=== PATIENT | male | born 1960 | race Caucasian/White ===

== ENCOUNTER 2017-12-07 07:08 | Inpatient (IN) | payer BC, OTHER ==
[~2017-12-07] VITALS: Ht 172.7 cm; Wt 94.2 kg
--- NOTE | ~2017-12-07 | EKG ---
[address] [place] [address] ELECTROCARDIOGRAM REPORT Name: CLARK KERR Room #: 202-P DIS IN M.R.#: [id number] Admission: 12/07/17 Attend Phys: Raheem Akhtar MD Discharge: 12/08/17 Date of : 56 Report #: [id number] THIS REPORT FOR: //name// [facility] Test Date: 2017-12-08 Test Time: 08:18:10 Pat Name: CLARK KERR Department: Room: 202 P Gender: M Accessioner: jlangel luis : 1960 Requested By: Fabi Guillermo Order Number: [id number] MD: Dax Charles Measurements Intervals [place] Rate: 85 P: 124 MI: 249 QRS: 31 QRSD: 101 T: 166 QT: 472 QTc: 562 Interpretive Statements Sinus rhythm Prolonged MI interval Anteroseptal infarct, age indeterminate T-wave inversion, consider ischemia Prolonged QT interval Compared to ECG 12/07/2017 07:08:57 Prolonged QT interval now present Ventricular premature complex(es) no longer present anterior T-wave abnormality is new Electronically Signed On 12-10-2017 7:52:48 CDT by Dax Charles [email or web address] <ELECTRONICALLY SIGNED> By: Dax Charles MD, [facility] 12/10/17 0752 7 7 Dax Charles MD, [facility] /EPI
--- NOTE | ~2017-12-07 | CATHLAB ---
[facility] [place] [address] INVASIVE PROCEDURE REPORT Name: CLARK KERR Room #: 202-P DIS IN M.R.#: [id number] Admission: 12/07/17 Attend Phys: Chapin Vazquez Discharge: 12/08/17 Date of : 56 Date of Service: 12/09/17 1109 Report #: [id number] THIS REPORT FOR: //name// APPROVED REPORT Study performed: 12/07/2017 09:27:44 Patient Details Patient Status: In-Patient Room #: The patient is a 57 year-old male Event Personnel Parrish Hernandez Earth Science Technician, Cheryl Raymond, Jaquelin Fox RTR, Yumi Guzmán Wes RN, Singh Chen RN long wall mining machine tender Performed Art Access - R femoral artery* 67631 Initial Mod Sed Same Phys/QHP Gr5y 139533 21462 Mod Sed Same Phys/QHP Ea 674204 Left Heart Cath w/or w/o Coronaries 1598920 LHC PTCA Single Vessel LAD 4967808 PCISINGLE Aortogram Abdominal Peripheral Angio 037630 Hemostasis w/ Mynx Indication Non-STEMI Procedure Narrative The patient was brought urgently to the Cardiac Catheterization Laboratory and was prepped and draped in a sterile manner. The Right Groin^ was infiltrated with 1% Lidocaine subcutaneous anesthesia. A PINNACLE 6FR Sheath #[id number] sheath was inserted into the RFA^. Coronary angiography was performed using coronary diagnostic catheters. The right coronary system was accessed and visualized with a JR 4 catheter. The left coronary system was accessed and visualized with a JL 4 catheter. The left ventricle was accessed and visualized with a Pigtail catheter. Left ventriculogram was performed in RANKIN projection. An aortogram of the abdominal aorta was performed. Closure device was deployed with a 6 Fr Mynx. The patient tolerated the procedure well and there were no complications associated with the procedure. There was no hematoma. Intraoperative Conscious Sedation Sedation start time: 09:53 Case end Time: 10:37 Versed [address] [address] INVASIVE PROCEDURE REPORT Name: USHACLARK ROSA MARIA Room #: 202-P [facility] IN M.R.#: [id number] Admission: 12/07/17 Attend Phys: Chapin Vazquez Discharge: 12/08/17 Date of : 56 Date of Service: 12/09/17 1109 Report #: [id number] Fluoro Time: 8.40 minutes Dose: DAP 61889.20 cGycm2 1506 mGy Contrast Type and Amount: Omnipaque 225 ml IVUS Findings Sprinter OTW 2.5 x 30 #[id number] Hemodynamics The aortic pressure is 126/82 mmHg with a mean of 99 mmHg. The left ventricular pressure is 134/17 mmHg with a mean of mmHg. The left ventricular end diastolic pressure is 29 mmHg. PCI Technique Lesion Anticoagulation was achieved with Angiomax. Percutaneous coronary intervention was performed on the proximal left anterior descending artery segment. A LAUNCHER 6FR EBU 3.75 SH #[id number] Guide Catheter was used to engage the ostium. A Luge Wire .014 x 182CM #[id number] Interventional Guidewire was used to cross the lesion. BALLOON DILATION A Balloon catheter Sprinter OTW 2.5 x 15 #[id number] was inserted and inflated up to 8.00atm for 22seconds. Additional Inflation: 8.00atm for 21seconds. Additional Inflation: 6.00atm for 10seconds. POST STENT DEPLOYMENT BALLOON DILATION A Balloon catheter Euphora NC RX 3.0 x 12 #[id number] was inserted and inflated up to 20.00atm for 50seconds. BALLOON DILATION A Balloon catheter Sprinter OTW 2.5 x 30 #[id number] was inserted and inflated up to 16.00atm for 40seconds. Conclusion #1 successful PTCA of in-stent restenosis in the proximal LAD lesion. A 30 noncompliant balloon taken to 20 benito yielding 0% residual and LARISA grade 3 flow into this LAD system 99% restenosis with slower flow restored to 0% #2 left main with mild disease giving rise to LAD and circumflex #3 circumflex OM with 3040% a first OM or actual ramus branch lesion proximally diffuse disease nondominant distal circumflex #4 dominant RCA with moderate disease throughout 50-60% proximal mid vessel 70% distal filling a small and severely diseased PDA. This vessel best treated medically. Due to the diffuse nature of the disease. #5 normal left ventricular size with a moderate area of anterior [facility] [address] [place] [address] INVASIVE PROCEDURE REPORT Name: CLARK KERR Room #: 202-P DIS IN M.R.#: [id number] Admission: 12/07/17 Attend Phys: Chapin Vazquez Discharge: 12/08/17 Date of : 56 Date of Service: 12/09/17 1109 Report #: [id number] apical inferior apical near akinesis EF 35-40% range. There is evidence of a parent mechanical mitral valve functioning appropriately #6 abdominal aorta mildly ectatic with moderate disease in bilateral renal arteries no aneurysm. Recommendations and plan: Continue aggressive risk factor modification will add Plavix for one month and re-anticoagulate. Patient has history of heparin-induced thrombocytopenia. Bivalirudin was utilized no heparin. Re-anticoagulate with warfarin for mechanical mitral valve. <ELECTRONICALLY SIGNED> By: Parrish Hernandez MD, FACC 12/09/179 08 08 Parrish Hernandez MD, FACC /INF
--- NOTE | ~2017-12-07 | EKG ---
[place] [address] [place] [address] ELECTROCARDIOGRAM REPORT Name: CLARK KERR Room #: 202-P ADM IN M.R.#: [id number] Admission: 12/07/17 Attend Phys: Raheem Akhtar MD Discharge: Date of : 56 Report #: [id number] THIS REPORT FOR: //name// [facility] ED Test Date: 2017-12-07 Test Time: 07:08:57 Pat Name: CLARK KERR Department: Room: Gender: M Infantry Senior Sergeant: KF : 1960 Requested By: Anabella Jordan Order Number: [id number] MD: Dax Charles Measurements Intervals [place] Rate: 87 P: 75 SD: 230 QRS: 30 QRSD: 97 T: -46 QT: 336 QTc: 404 Interpretive Statements Sinus rhythm Multiform ventricular premature complexes Prolonged SD interval Inferior infarct, age indeterminate Compared to ECG 07/19/2015 11:07:22 Ventricular premature complex(es) now present First degree AV block now present Electronically Signed On 12-07-2017 16:56:16 CDT by Dax Charles [email or web address] <ELECTRONICALLY SIGNED> By: Dax Charles MD, [facility] 12/07/17 1656 0708 0708 Dax Charles MD, [facility] /EPI
--- NOTE | ~2017-12-07 | H ---
[facility] [place] [address] HISTORY AND PHYSICAL Name: CLARK KERR Room #: 202-P ADM IN M.R.#: [id number] Admission: 12/07/17 Attend Phys: Raheem Akhtar MD Discharge: Date of : 56 Report #: [id number] THIS REPORT FOR: //name// CC: Dax Charles MD [facility] KIRIT Akhtar DATE OF SERVICE: 12/07/2017 CHIEF COMPLAINT: Chest pain. HISTORY OF PRESENT ILLNESS: The patient is a 57-year-old male with history of hypertension, history of coronary artery disease, status post stent in 2009; history of mitral valve repair in 2012, presented to the Emergency Room complaining of chest pain. The patient woke up at around 6 this morning with a chest pain. He describes a pressure type over the retrosternal area. The pain is similar to what he had when he had VT in 2009. Pain is primarily over the retrosternal area without any radiation, but was associated with mild shortness of breath, dizziness, some left hand numbness and numbness in his legs. The patient went to work and then was brought in by EMS to [facility] because of persistent chest pain. The patient was given one nitro under the tongue and morphine. The patient's pain has resolved at present. No history of any recent travel. No fever or chills, no cough, expectoration. No nausea or vomiting, no leg swelling. PAST MEDICAL HISTORY: Significant for coronary artery disease. The patient had VT in 2009 and had a stent placed at that time. He had a mitral valve replaced in 2012. His last stress test was in 06/2015 when he was admitted for chest pain. The stress test at that time showed a small area of reversible ischemia. Last echo showed an EF of 45-50%. No history of any peptic ulcer disease, bleeding disorder, history of DVT in the past in 2010, history of pacemaker. Cholecystectomy, history of dyslipidemia. FAMILY HISTORY: Significant for hypertension and coronary artery disease and stroke. ALLERGIES: ALLERGIC TO HEPARIN. HOME MEDICATIONS: Reviewed, please look at the nursing documentation for home meds. REVIEW OF SYSTEMS: CONSTITUTIONAL: No recent weight loss, weight gain. No fever or chills. EYES: No change in vision. THROAT: Denies any sore throat. [facility] [address] [place] [address] HISTORY AND PHYSICAL Name: CLARK KERR Room #: 202-P [facility] IN .R.#: [id number] Admission: 12/07/17 Attend Phys: Raheem Akhtar MD Discharge: Date of : 56 Report #: [id number] CARDIOVASCULAR: As above. RESPIRATORY: No cough or expectoration. GASTROINTESTINAL: No nausea or vomiting. GENITOURINARY: No dysuria, hematuria. NEUROLOGIC: No focal numbness or weakness of the extremity at present. He did have some numbness in his lower extremity when he had the pain. The 12-point review of system is negative other than the positive and negative dictated in the history of present illness and the review of system. PHYSICAL EXAMINATION: VITAL SIGNS: Blood pressure 107/68, heart rate of 87 per minute, afebrile. GENERAL: The patient is awake and alert, not in acute respiratory distress. EYES: Pupils equal, reactive to light. ENT: Throat appears normal. NECK: Supple, no JVD, no bruit, no lymphadenopathy. CARDIOVASCULAR SYSTEM: S1, S2, negative S3. There is a metallic click. CHEST: Bilateral air entry present. Clear on auscultation. ABDOMEN: Soft, bowel sounds present, no mass, no organomegaly, no tenderness. PERIPHERY: No pedal edema. No calf tenderness. Dorsalis pedis 1+. NEUROLOGICAL: No gross motor or sensory deficit. LABORATORY DATA: Reviewed. EKG showed sinus rhythm. There is 1 mm elevation in V1 and V2. There is first degree AV block. Chest x-ray showed no acute process. Troponin is 0.16. White count is 6, hemoglobin is 13.7, platelet is 174. INR is 1.8. Chemistry showed a sodium of 134, BUN and creatinine are 14 and 1.1. ASSESSMENT: 1. Chest pain, possible angina. The patient's chest pain is relived with nitro and morphine in the Emergency Room. The patient will be admitted to telemetry. Cardiology will be consulted. We will repeat his troponin and EKG at 10:00 a.m. The patient denies chest pain and comfortable at present. The patient will be continued on aspirin and beta marisela. We will keep him n.p.o. for possible cardiac catheterization. 2. Hypertension. The patient will be continued on Coreg and monitor closely. 3. Dyslipidemia. The patient is on Vytorin, which will be continued. We will check his lipids. 4. Deep venous thrombosis prophylaxis, already on Coumadin. 5. Mitral valve repair, on Coumadin therapy. INR is 1.8 today. The patient will be continued on Coumadin, and we will recheck his INR in the morning. [facility] [address] [place] [address] HISTORY AND PHYSICAL Name: CLARK KERR Room #: 202-P ADM IN M.R.#: [id number] Admission: 12/07/17 Attend Phys: Raheem Akhtar MD Discharge: Date of : 56 Report #: [id number] Treatment plan has been explained to the patient in detail. <ELECTRONICALLY SIGNED> By: Raheem Akhtar MD 12/07/17 1235 0920 1043 Raheem Akhtar MD /nt
--- NOTE | ~2017-12-07 | HC ---
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 He does walk extensively on a daily basis, but then began having the substernal chest discomfort and made him extremely short of breath, subsequently brought himself to the Emergency Room here at [facility]. He has a history of coronary artery disease and a mitral valve replacement. It was attempted to have a ring annuloplasty, but subsequently had to undergo a redo operation and developed heparin-induced thrombocytopenia. He has extensive clots and IVC pill filter was placed. He was placed on Coumadin for the valve and has been on since. He is slightly subtherapeutic today at 1.8 and his troponin is elevated at 0.16 with some nonspecific EKG changes. He also has a [employer] dual chamber pacemaker in place. He has been feeling fairly well until this morning's event. He does follow up with Cardiology, not late, but it has been some time. He had a history of wide complex tachycardia during electrophysiology testing and an ICD was placed. I believe the pacer ICD was placed. I will interrogate this device. He has been compliant with the medications, which are carvedilol 6.25 b.i.d., nortriptyline, Vytorin or some generic of Vytorin, lisinopril 5, warfarin and levothyroxine. 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 Sounds like there was a catheterization in 2012 and no intervention at that time. There was a small diagonal branch lesion that was not intervened on according to the old records, Dr. Charles's consult from 2014. A 40% right coronary artery lesion, hypertension, hypercholesterolemia. He had a cholecystectomy and the coronary stent was originally placed in 2009 and then upper extremity and lower extremity DVT secondary to HIT syndrome. SOCIAL HISTORY: He is . He has 1 child. He lives independently. No current alcohol or tobacco. Does smoke some weed occasionally. 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 FAMILY HISTORY: Positive including father and mother that had premature coronary artery disease. REVIEW OF SYSTEMS: Essentially negative except for some occasional nocturia. LABORATORY WORK: Creatinine is 1.1, potassium 3.5. Troponin is 0.16. H and H are 13 and 40. Chest x-ray is not impressive. PHYSICAL EXAMINATION: [facility] [address] [place] [address] CONSULTATION Name: CLARK KERR Room #: 202-P [facility] IN M.R.#: [id number] Admission: 12/07/17 Attend Phys: Raheem Akhtar MD Discharge: Date of : 56 Report #: [id number] GENERAL: He is alert, oriented. He is in no distress after nitro and morphine. VITAL SIGNS: Blood pressure 106/68, pulse 80. HEENT: Eyes reveal xanthelasmas. Pharynx is clear. NECK: Shows preserved upstrokes without JVD or bruits. LUNGS: Clear. CARDIAC: Regular rate and rhythm, S1, S2. There is no murmur or gallop. ABDOMEN: Soft. No HSM or abdominal bruit. EXTREMITIES: Reveal no edema. Distal pulses intact. NEUROLOGIC: Nonfocal. SKIN: Warm and dry without xanthoma or ulcer. MUSCULOSKELETAL: No gross joint deformity. Does have multiple piercings in his ears. ASSESSMENT: 1. Non-ST elevation myocardial infarction. 2. Coronary artery disease with history of left anterior descending stent in 2009. 3. Mechanical mitral valve. 4. Hypertension. 5. Hypercholesterolemia. 6. History of heparin-induced thrombocytopenia with lower extremity deep venous thrombosis. RECOMMENDATIONS AND PLAN: His subtherapeutic INR 1.8. We will proceed now to the catheterization lab to delineate the anatomy and possible intervention. The patient agrees to proceed. We will need to avoid any heparin usage. We will utilize bivalirudin if necessary and then re-anticoagulate as quickly as possible with a mechanical mitral valve. Risks, benefits, alternatives were discussed with the patient. He does like to proceed. By: 0924 0150 Parrish Hernandez MD, FACC /nt
[2017-12-07 07:08] VITALS: BP 132/88
[~2017-12-07 07:08] MED LIST: ACETAMINOPHEN325 M1 PO; ASPIR 8181 MG PO; ASPIRIN81 M2 PO; AUGMENTIN 875875 M1 PO; CARVEDILOL6.25 MG PO; COUMADIN 3 MG TA3 MG PO; LEVOXYL100 MCG PO; LISINOPRIL5 MG PO; MULTI VITAMIN1 EACH PO; NITROSTAT0.4 MG SUBLING; NORCO 5-325 TA1 EACH PO; NORTRIPTYLINE H50 MG PO; PROZAC 20 MG20 MG PO; SPIRONOLACTONE25 M3 PO; VYTORIN 10-201 EACH PO; VYTORIN 10-401 EACH PO
[2017-12-07 07:27] LABS: ABSOLUTE NEUTROPHILS 3.6 thou/uL (1.4-8.2); BASOPHILS 1.2 % (0.0-2.0); EOSINOPHILS 5.1 % (0.0-3.0); HEMATOCRIT 40.4 % (42.0-52.0); HEMOGLOBIN 13.7 gm/dL (14.0-18.0); LYMPHOCYTES 21.9 % (24.0-44.0); MCH 29.3 pg (26.0-34.0); MCV 86.3 fL (80.0-100.0); PLATELET COUNT 174 thou/uL (150-400); POLYS 60.8 % (36.0-66.0); RBC 4.68 mil/uL (4.50-6.00); RDW 15.2 % (10.5-14.5)
[2017-12-07 07:36] LABS: CALCIUM 8.8 mg/dL (8.5-10.1); CREATININE 1.1 mg/dL (0.7-1.3); POTASSIUM 3.5 mmol/L (3.5-5.1)
[2017-12-07 07:45] LABS: TROPONIN-I 0.16 ng/mL (<0.06)
[2017-12-07 07:50] LABS: APTT 33.8 Seconds (24.5-32.8); INR 1.8; PROTIME 18.1 Seconds (9.3-11.4)
[2017-12-07 08:36] VITALS: BP 107/68
[2017-12-07 09:33] VITALS: BP 105/68
[2017-12-07 09:47] LABS: CHOLESTEROL 203 mg/dL (<200); HDL CHOLESTEROL 35 mg/dL (>40); LDL CHOLESTEROL 146 mg/dL (<100); TC:HDL 5.8 Ratio (Not establshd); TRIGLYCERIDE 112 mg/dL (<150); VLDL 22 mg/dL (<40)
[2017-12-07 16:34] LABS: INR 2.2
[2017-12-07 17:01] VITALS: BP 110/76
[2017-12-07 19:07] VITALS: BP 109/64
[2017-12-08 00:14] VITALS: BP 105/76
[2017-12-08 04:46] VITALS: BP 102/65
[2017-12-08 04:52] LABS: ABSOLUTE NEUTROPHILS 4.2 thou/uL (1.4-8.2); BASOPHILS 0.9 % (0.0-2.0); EOSINOPHILS 4.9 % (0.0-3.0); HEMATOCRIT 40.8 % (42.0-52.0); HEMOGLOBIN 13.8 gm/dL (14.0-18.0); LYMPHOCYTES 19.7 % (24.0-44.0); MCH 29.5 pg (26.0-34.0); MCHC 33.8 g/dL (28.0-37.0); MCV 87.4 fL (80.0-100.0); MONOCYTES 9.2 % (1.0-8.0); PLATELET COUNT 164 thou/uL (150-400); POLYS 65.3 % (36.0-66.0); RBC 4.67 mil/uL (4.50-6.00); RDW 15.2 % (10.5-14.5); WBC 6.4 thou/uL (4.0-11.0)
[2017-12-08 05:01] LABS: CALCIUM 8.5 mg/dL (8.5-10.1); MAGNESIUM 1.9 mg/dL (1.8-2.4)
[2017-12-08 05:03] LABS: INR 3.4
[2017-12-08 05:05] LABS: CHOLESTEROL 192 mg/dL (<200); HDL CHOLESTEROL 34 mg/dL (>40); LDL CHOLESTEROL 140 mg/dL (<100); TC:HDL 5.6 Ratio (Not establshd); TRIGLYCERIDE 90 mg/dL (<150); VLDL 18 mg/dL (<40)
[2017-12-08 05:08] LABS: SERUM ASSESSMENT Clear
[2017-12-08 07:10] VITALS: BP 98/68
[2017-12-08] MEDS ORDERED: ATORVASTATIN CA40 MG PO (08:08)
[2017-12-08] MEDS ORDERED: CLOPIDOGREL75 MG PO (08:08)
[2017-12-08 09:58] VITALS: BP 98/68
== END 2017-12-08 10:56 | disposition home or self-care (01) | DRG 251 ==
LOC: ER 07:08 → 2N 08:33 → EROBS 08:33 → 2N 09:36
PROVIDERS: Emergency Medicine; Internal Medicine; Internal Medicine Cardiovascular Disease
PROC: 4A023N7 Measurement of Cardiac Sampling and Pressure, Left Heart, Percutaneous Approach (ICD-10-PCS; principal; 2017-12-07)
PROC: B2111ZZ Fluoroscopy of Multiple Coronary Arteries using Low Osmolar Contrast (ICD-10-PCS; principal; 2017-12-07)
PROC: 02713ZZ Dilation of Coronary Artery, Two Arteries, Percutaneous Approach (ICD-10-PCS; principal; 2017-12-07)
DX: I21.4 Non-ST elevation (NSTEMI) myocardial infarction (principal); I10 Essential (primary) hypertension; I25.10 Atherosclerotic heart disease of native coronary artery without angina pectoris; E78.00 Pure hypercholesterolemia, unspecified; Y83.8 Other surgical procedures as the cause of abnormal reaction of the patient, or of later complication, without mention of misadventure at the time of the procedure; F12.90 Cannabis use, unspecified, uncomplicated; Z95.1 Presence of aortocoronary bypass graft; I25.2 Old myocardial infarction; Z95.0 Presence of cardiac pacemaker; Z95.5 Presence of coronary angioplasty implant and graft; Z86.718 Personal history of other venous thrombosis and embolism; Z90.49 Acquired absence of other specified parts of digestive tract; Z71.51 Drug abuse counseling and surveillance of drug abuser; Z79.01 Long term (current) use of anticoagulants; Z95.2 Presence of prosthetic heart valve; Z79.82 Long term (current) use of aspirin; Z79.899 Other long term (current) drug therapy; Z88.8 Allergy status to other drugs, medicaments and biological substances; Z82.49 Family history of ischemic heart disease and other diseases of the circulatory system; Z82.3 Family history of stroke; Y92.89 Other specified places as the place of occurrence of the external cause
CPT/HCPCS: 10081